=== PATIENT | male | born 1985 | race Hispanic/Latino ===

== ENCOUNTER 2019-07-15 10:40 | Inpatient (IN) | payer SELFPAY ==
[~2019-07-15] VITALS: Ht 180.3 cm; Wt 112.5 kg
[2019-07-15] MEDS ORDERED: SODIUM CHLORIDE 0.9% 1000ML 1,000 ML IV ONE ×2 (11:03→12:25)
[2019-07-15] MEDS ORDERED: MORPHINE SULFATE 2 MG/ML 1ML SYG ONE ×2 (11:04→13:28)
[2019-07-15 11:08] LABS: BASOPHILS % (AUTO) 0.5 % (0.0-5.0); EOSINOPHILS % (AUTO) 1.6 % (0.0-8.0); HEMATOCRIT 44.4 % (42-54); LYMPHOCYTES % (AUTO) 25.2 % (21.0-51.0); MEAN CORPUSCULAR HEMOGLOBIN 31.1 pg (27.0-33.0); MEAN CORPUSCULAR HGB CONC 35.4 g/dL (32.0-36.0); MEAN CORPUSCULAR VOLUME 87.9 fL (79-99); MONOCYTES % (AUTO) 5.5 % (3.0-13.0); NEUTROPHILS % (AUTO) 66.8 % (40.0-77.0); PLATELET COUNT (AUTO) 319 K/uL (130-400); RED BLOOD CELL COUNT(AUTO) 5.05 MIL/uL (4.50-6.20); RED CELL DISTRIBUTION WIDTH 11.7 % (11.0-15.5); WHITE BLOOD COUNT (AUTO) 9.6 K/uL (4.8-10.8)
[2019-07-15 11:19] LABS: CREATININE 1.1 mg/dL (0.5-1.5)
[2019-07-15 11:24] LABS: ALBUMIN 3.9 g/dL (3.5-5.0); BILIRUBIN,TOTAL 0.7 mg/dL (0.2-1.0); TOTAL PROTEIN, SERUM 7.7 g/dL (6.0-8.3)
[2019-07-15 11:33] LABS: APPEARANCE,URINE Clear (CLEAR); BILIRUBIN,URINE Negative (NEGATIVE); COLOR,URINE Yellow (YELLOW); GLUCOSE, URINE (UA) Negative (NEGATIVE); KETONES,URINE Negative (NEGATIVE); LEUKOCYTE ESTERASE ,URINE Negative (NEGATIVE); NITRATE,URINE Negative (NEGATIVE); OCCULT BLOOD,URINE Negative (NEGATIVE); PROTEIN,URINE Negative (NEGATIVE); UROBILINOGEN,URINE 0.2 mg/dL (0.2-1.0)
[2019-07-15] MEDS ORDERED: ZOSYN 3.375GM+NS 50ML 50 ML IV ONE (12:24)
[2019-07-15] MEDS ORDERED: ONDANSETRON HCL 4 MG/2 ML VIAL IVP PRN (13:00)
[2019-07-15 15:01] VITALS: BP 150/82
[2019-07-15 16:00] VITALS: BP 127/72
[2019-07-15] MEDS: ZOSYN 3.375GM+NS 50ML 50 ML IV SCH ×2 (16:00→20:31)
[2019-07-15] MEDS: MORPHINE SULFATE 2 MG/ML 1ML SYG IVP PRN (18:05)
[2019-07-15] MEDS: DEXTROSE 5%-LACTATED RINGERS 1,000 ML IV SCH (18:07)
[2019-07-15] MEDS: NICOTINE 7 MG/ 24 HR PATCH TD SCH (18:57)
[2019-07-15 19:00] VITALS: BP 121/70
[2019-07-16] VITALS (24 sets, daily range): BP systolic 95–148; BP diastolic 52–93
[2019-07-16] MEDS: DEXTROSE 5%-LACTATED RINGERS 1,000 ML IV SCH ×3 (02:20→20:49)
[2019-07-16] MEDS: ZOSYN 3.375GM+NS 50ML 50 ML IV SCH ×3 (04:45→20:12)
[2019-07-16 05:28] LABS: BASOPHILS % (AUTO) 0.5 % (0.0-5.0); EOSINOPHILS % (AUTO) 2.5 % (0.0-8.0); HEMATOCRIT 40.2 % (42-54); LYMPHOCYTES % (AUTO) 35.9 % (21.0-51.0); MEAN CORPUSCULAR HEMOGLOBIN 30.4 pg (27.0-33.0); MEAN CORPUSCULAR HGB CONC 33.8 g/dL (32.0-36.0); MEAN CORPUSCULAR VOLUME 89.7 fL (79-99); MONOCYTES % (AUTO) 7.8 % (3.0-13.0); NEUTROPHILS % (AUTO) 52.8 % (40.0-77.0); PLATELET COUNT (AUTO) 289 K/uL (130-400); RED BLOOD CELL COUNT(AUTO) 4.48 MIL/uL (4.50-6.20); RED CELL DISTRIBUTION WIDTH 11.8 % (11.0-15.5); WHITE BLOOD COUNT (AUTO) 6.4 K/uL (4.8-10.8)
[2019-07-16 05:35] LABS: CREATININE 1.2 mg/dL (0.5-1.5); POTASSIUM 3.7 mmol/L (3.5-5.1)
[2019-07-16] MEDS ORDERED: LIDOCAINE PF 2% 5ML ABBOJECT ONE (07:32)
[2019-07-16] MEDS ORDERED: ROCURONIUM 10MG/1ML SYR 10 MG/ML ML ONE (07:32)
[2019-07-16] MEDS ORDERED: PROPOFOL 10 MG/ML 20ML VIAL IV ONE (07:32)
[2019-07-16] MEDS ORDERED: FENTANYL CITRATE PF 50 MCG/1 ML 2ML VIAL ONE (07:32)
[2019-07-16] MEDS ORDERED: SUCCINYLCHOLINE 200MG/10ML SYR ONE (07:32)
[2019-07-16] MEDS ORDERED: BUPIVACAINE/PF 0.5% 10ML VIAL ONE (07:46)
[2019-07-16] MEDS ORDERED: LACTATED RINGERS 1000ML 1,000 ML IV ONE (07:57)
--- NOTE | 2019-07-16 08:14 | NUR ---
POTENTIAL FOR INFECTION: SHAVED ENTIRE ABDOMEN PER LISA CORONEL.
[2019-07-16] MEDS ORDERED: MIDAZOLAM HCL 1 MG/ML 2ML VIAL ONE (08:39)
[2019-07-16] MEDS ORDERED: DEXAMETHASONE SOD PHOSPHATE 4 MG/ML 1ML VIAL ONE (08:50)
[2019-07-16] MEDS ORDERED: GLYCOPYRROLATE 1 MG/5 ML SYRINGE ONE (08:54)
[2019-07-16] MEDS ORDERED: NEOSTIGMINE 5MG/5ML SYR IV ONE (08:54)
[2019-07-16] MEDS: NICOTINE 7 MG/ 24 HR PATCH TD SCH (09:00)
[2019-07-16] MEDS ORDERED: ONDANSETRON HCL 4 MG/2 ML VIAL ONE (09:11)
[2019-07-16] MEDS ORDERED: SODIUM CHLORIDE 0.9% 10 ML VIAL ONE (09:29)
[2019-07-16] MEDS ORDERED: ONDANSETRON HCL 4 MG/2 ML VIAL IVP PRN (09:45)
[2019-07-16] MEDS ORDERED: MEPERIDINE-PF 25 MG/ML SYG ONE (09:53)
[2019-07-16] MEDS ORDERED: MORPHINE SULFATE 4 MG/1ML SYG ONE (10:08)
[2019-07-16] MEDS: MORPHINE SULFATE 2 MG/ML 1ML SYG IVP PRN (14:44)
--- NOTE | 2019-07-16 16:41 | NUR ---
DCP CM met with pt discussed dc plans. Pt is independent prior to admission, lives at home with spouse. Dneies any equipments/services. Feels safe to go back home, still drives and works, spouse able to assist with transportation and needs as necessary. Pt is a self pay, C assisting, given [employer] packet. DC plan to home once stable. CM to cont to follow up. Addendum: 07/16/19 at 1643 by SAIMA NEWELL LVN CM Amended: Links added.
--- NOTE | 2019-07-16 19:45 | NUR ---
ROUNDS PATIENT AWAKE AND ALERT. NO COMPLAINTS OF PAIN VOICED AT THIS TIME. VITALS STABLE. AFEBRILE. TOLERATING PO DIET WELL. NO NAUSEA OR VOMITING NOTED. AMBULATING IN HALLWAY. SPOUSE AT SIDE. NO SIGNS OF DISTRESS NOTED. CALL LIGHT WITHIN REACH. WILL CONTINUE TO BE OBSERVED. Addendum: 07/17/19 at 0409 by SUZANNE GRANDA RN RN Amended: Links added.
--- NOTE | 2019-07-16 22:30 | NUR ---
PATIENT AWAKE AND ALERT. VOICES ALL NEEDS. NO COMPLAINTS OF PAIN VOICED AT THIS TIME. UNIT OF PACKED RBCS STARTED. NO ADVERSE REACTIONS NOTED AT THIS TIME. VITALS STABLE. AFEBRILE. TOLERATING WELL. NO SIGNS OF DISTRESS NOTED. CALL LIGHT WITHIN REACH. WILL CONTINUE TO BE OBSERVED. Addendum: 07/17/19 at 0405 by SUZANNE GRANDA RN RN Amended: Links added. Addendum: 07/17/19 at 0406 by SUZANNE GRANDA RN RN WRONG PATIENT
[2019-07-17 03:00] VITALS: BP 122/58
[2019-07-17 05:02] LABS: BASOPHILS % (AUTO) 0.3 % (0.0-5.0); EOSINOPHILS % (AUTO) 0.4 % (0.0-8.0); HEMATOCRIT 39.9 % (42-54); LYMPHOCYTES % (AUTO) 23.7 % (21.0-51.0); MEAN CORPUSCULAR HEMOGLOBIN 30.8 pg (27.0-33.0); MEAN CORPUSCULAR HGB CONC 34.8 g/dL (32.0-36.0); MEAN CORPUSCULAR VOLUME 88.5 fL (79-99); MONOCYTES % (AUTO) 6.6 % (3.0-13.0); NEUTROPHILS % (AUTO) 68.8 % (40.0-77.0); PLATELET COUNT (AUTO) 314 K/uL (130-400); RED BLOOD CELL COUNT(AUTO) 4.51 MIL/uL (4.50-6.20); RED CELL DISTRIBUTION WIDTH 11.5 % (11.0-15.5)
[2019-07-17 05:22] LABS: CREATININE 1.2 mg/dL (0.5-1.5); POTASSIUM 3.8 mmol/L (3.5-5.1)
[2019-07-17] MEDS: ZOSYN 3.375GM+NS 50ML 50 ML IV SCH ×2 (05:39→13:00)
[2019-07-17 07:44] VITALS: BP 118/74
[2019-07-17] MEDS: NICOTINE 7 MG/ 24 HR PATCH TD SCH (09:54)
[2019-07-17] MEDS ORDERED: AMOX-429 PO (13:09)
--- NOTE | 2019-07-17 15:00 | NUR ---
Discharge instructions given to patient instructed on new medications dose time and side effect, follow-up appointments,no questions or concerns at this time. Iv removed with catheter intact and site dressed, denies pain at this time patient left with family for home walk with staff to [facility]
== END 2019-07-17 15:00 | disposition home or self-care (01) | DRG 342 ==
LOC: EDH 10:40 → OBSVTOIN 10:41 → EDHIP 10:41 → 4BH 14:27
PROVIDERS: ADMIT Internal Medicine; ATTEND Internal Medicine
PROC: 0DTJ4ZZ Resection of Appendix, Percutaneous Endoscopic Approach (ICD-10-PCS; principal; 2019-07-16 08:34)
DX: K35.80 Unspecified acute appendicitis (principal); N39.0 Urinary tract infection, site not specified; E66.9 Obesity, unspecified; Z68.34 Body mass index [BMI] 34.0-34.9, adult; Z72.0 Tobacco use; Z86.61 Personal history of infections of the central nervous system
CPT/HCPCS: 36415; 74176; 80048; 80053; 81003; 83690; 85025; G0378; J0330; J1100; J2001; J2175; J2250; J2270; J2405; J2543; J2704; J2710; J3010; J3490; J7030; J7120